=== PATIENT | male | born 1990 | race African-American/Black ===

== ENCOUNTER 2016-04-12 21:47 | Emergency (ER) | payer SELFPAY ==
[~2016-04-12] VITALS: Ht 177.8 cm; Wt 72.6 kg
[2016-04-12 22:10] VITALS: BP 132/88
[2016-04-12 22:58] LABS: BASO # 0.1 x10^3/uL (0.0-0.2); BASO % 1 % (0-3); EOS % 0 % (0-3); HEMATOCRIT 47.5 % (39.0-53.0); HEMOGLOBIN 15.6 g/dL (13.0-17.5); LYMPH # 0.4 x10^3/uL (1.0-4.8); LYMPH % 3 % (24-48); MEAN CORPUSCULAR HEMOGLOBIN 26 pg (25-35); MEAN CORPUSCULAR HGB CONC 33 g/dL (31-37); MEAN CORPUSCULAR VOLUME 78 fL (79-100); MONO % 4 % (0-9); NEUT % 93 % (31-73); PLATELET COUNT 260 x10^3/uL (140-400); RED BLOOD COUNT 6.09 x10^6/uL (4.30-5.70); RED CELL DISTRIBUTION WIDTH 14.4 % (11.5-14.5); WHITE BLOOD COUNT 14.1 x10^3/uL (4.0-11.0)
[2016-04-12] MEDS ORDERED: FAMOTIDINE 20 MG/2 ML VIAL IVP ONE (23:00)
[2016-04-12] MEDS ORDERED: ONDANSETRON PF 4 MG/2 ML VIAL. IV ONE (23:00)
[2016-04-12] MEDS ORDERED: FENTANYL PF 100 MCG/2 ML VIAL. IV PRN (23:00)
[2016-04-12] MEDS ORDERED: IV NORMAL SALINE 1000ML BAG 1,000 ML IV SCH (23:00)
[2016-04-12 23:25] LABS: CALCIUM 9.5 mg/dL (8.5-10.1); GFR 109.3
[2016-04-12 23:30] LABS: ALBUMIN 4.4 g/dL (3.4-5.0); DIRECT BILIRUBIN 0.1 mg/dL (0.0-0.2); TOTAL BILIRUBIN 0.6 mg/dL (0.2-1.0)
[2016-04-13] MEDS ORDERED: ONDA4TAB10 SL (00:02)
--- NOTE | 2016-04-13 00:02 | PHYS DOC ---
Past Medical History Past Medical History: No Pertinent History Past Surgical History: No Surgical History Alcohol Use: None Drug Use: None Adult General Chief Complaint Chief Complaint: NAUSEA/VOMITING/DIARRHA HPI HPI Patient is a 25 year old male who presents with lower abdominal pain, nausea and vomiting, and diarrhea starting this morning. States pain is nonradiating and nonmigrating. He has crampy, mild lower abdominal pain. He has had multiple episodes of nonbloody nonbilious emesis. He also notes mild headache, mid back pain and myalgia and chills. States he only has difficulty breathing when he is actively gagging, and has no active dyspnea. He denies dysuria, hematuria, constipation, fever, cough, chest pain, dyspnea, rash, sick contacts, recent travel or antibiotics. Review of Systems Review of Systems Constitutional: Denies measured fever [] Eyes: Denies change in visual acuity, redness, or eye pain [] HENT: Denies nasal congestion or sore throat [] Respiratory: Denies cough or shortness of breath [] Cardiovascular: No additional information not addressed in HPI [] GI: Denies bloody stools or bloody emesis [] : Denies dysuria or hematuria [] Musculoskeletal: Denies joint pain [] Integument: Denies rash or skin lesions [] Neurologic: Denies headache, focal weakness or sensory changes [] Endocrine: Denies polyuria or polydipsia [] Current Medications Current Medications Current Medications Medications (Trade) Dose Ordered Sig/Bret Start Time Stop Time Status Last Admin Dose Admin Famotidine (Pepcid) 20 mg 1X ONCE 04/12/16 23:00 04/12/16 23:01 DC 04/12/16 23:16 20 MG Fentanyl Citrate 50 mcg 50 mcg PRN Q15MIN PRN 04/12/16 23:00 04/13/16 22:59 04/12/16 23:16 50 MCG Ondansetron HCl (Zofran) 4 mg 1X ONCE 04/12/16 23:00 04/12/16 23:01 DC 04/12/16 23:16 4 MG Sodium Chloride (Iv Sodium Chloride 0.9% 1000ml Bag) 1,000 ml @ 1,000 mls/hr Q1H 04/12/16 23:00 04/12/16 23:59 DC 04/12/16 23:15 1,000 MLS/HR Allergies Allergies Allergies Coded Allergies Type Severity Reaction Last Updated Verified No Known Drug Allergies 04/12/16 No Physical Exam Physical Exam Constitutional: Well developed, well nourished, no acute distress, non-toxic appearance. [] HENT: Normocephalic, atraumatic, bilateral external ears normal, oropharynx moist, nose normal. [] Eyes: PERRLA, EOMI. [] Neck: Normal range of motion, supple. [] Cardiovascular:Heart rate regular rhythm [] Lungs & Thorax: Bilateral breath sounds clear to auscultation [] Abdomen: Bowel sounds normal, soft, minimal right lower quadrant and suprapubic tenderness, no guarding or rebound, negative Rovsing's, negative psoas/obturator /heeltap. [] Skin: Warm, dry, no erythema, no rash. [] Back: No tenderness, no CVA tenderness. [] Extremities: No tenderness, ROM intact, no edema. [] Neurologic: Alert and oriented X 3, normal motor function, normal sensory function, no focal deficits noted. [] Psychologic: Affect normal, judgement normal, mood normal. [] Current Patient Data Vital Signs Vital Signs Date Time Temp Pulse Resp B/P Pulse Ox O2 Delivery O2 Flow Rate FiO2 04/12/16 23:53 Room Air 04/12/16 22:10 98.8 97 18 132/88 99 98.8 Lab Values Laboratory Tests Test 04/12/16 22:35 White Blood Count 14.1x10^3/uL (4.0-11.0) H Red Blood Count 6.09x10^6/uL (4.30-5.70) H Hemoglobin 15.6g/dL (13.0-17.5) Hematocrit 47.5% (39.0-53.0) Mean Corpuscular Volume 78fL (79-100) L Mean Corpuscular Hemoglobin 26pg (25-35) Mean Corpuscular Hemoglobin Concent 33g/dL (31-37) Red Cell Distribution Width 14.4% (11.5-14.5) Platelet Count 260x10^3/uL (140-400) Neutrophils (%) (Auto) 93% (31-73) H Lymphocytes (%) (Auto) 3% (24-48) L Monocytes (%) (Auto) 4% (0-9) Eosinophils (%) (Auto) 0% (0-3) Basophils (%) (Auto) 1% (0-3) Neutrophils # (Auto) 13.1x10^3uL (1.8-7.7) H Lymphocytes # (Auto) 0.4x10^3/uL (1.0-4.8) L Monocytes # (Auto) 0.5x10^3/uL (0.0-1.1) Eosinophils # (Auto) 0.0x10^3/uL (0.0-0.7) Basophils # (Auto) 0.1x10^3/uL (0.0-0.2) Platelet Estimate Pending Sodium Level 143mmol/L (136-145) Potassium Level 4.0mmol/L (3.5-5.1) Chloride Level 103mmol/L (98-107) Carbon Dioxide Level 28mmol/L (21-32) Anion Gap 12 (6-14) Blood Urea Nitrogen 14mg/dL (8-26) Creatinine 1.0mg/dL (0.7-1.3) Estimated GFR (Cockcroft-Gault) 109.3 Glucose Level 125mg/dL (70-99) H Calcium Level 9.5mg/dL (8.5-10.1) Total Bilirubin 0.6mg/dL (0.2-1.0) Direct Bilirubin 0.1mg/dL (0.0-0.2) Aspartate Amino Transferase (AST) 21U/L (15-37) Alanine Aminotransferase (ALT) 50U/L (16-63) Alkaline Phosphatase 64U/L (46-116) Total Protein 8.0g/dL (6.4-8.2) Albumin 4.4g/dL (3.4-5.0) Lipase 84U/L (73-393) Laboratory Tests 04/12/16 22:35 Laboratory Tests 04/12/16 22:35 Course & Med Decision Making Course & Med Decision Making Pertinent Labs and Imaging studies reviewed. (See chart for details) He has leukocytosis, but labs are otherwise unremarkable. He is feeling well and tolerating po. He would like to go home. Abdomen exam is soft and nontender. Return precautions given. He and family understand and agree with plan. Dragon Disclaimer Dragon Disclaimer This electronic medical record was generated, in whole or in part, using a voice recognition dictation system. Departure Departure Impression: Primary Impression: Nausea vomiting and diarrhea Additional Impression: Lower abdominal pain Disposition: 01 HOME, SELF-CARE Condition: STABLE Referrals: NO PCP (PCP) Patient Instructions: Abdominal Pain, Possible Early Appendicitis Additional Instructions: Take Zofran as needed for nausea. Drink liquids to stay hydrated. Follow-up with your primary care doctor within one week. Return for any concerns. Scripts Ondansetron (Zofran Odt)4 Mg Tab.rapdis1 Tab SL Q8HRS #10 TAB Prov:Janey COWART MD 04/13/16 Problem Qualifiers Janey COWART MD Apr 13, 2016 00:02
[2016-04-13 04:59] LABS: PLT ESTIMATE ADEQUATE (ADEQUATE)
== END 2016-04-13 00:20 | disposition home or self-care (01) ==
LOC: ER 21:47
DX: R10.31 Right lower quadrant pain (principal); R11.2 Nausea with vomiting, unspecified; R19.7 Diarrhea, unspecified; R51 Headache; M54.6 Pain in thoracic spine; M79.1 Myalgia
CPT/HCPCS: 36415; 80048; 80076; 83690; 85007; 85027; 96361; 96374; 96375; 99284; J2405; J3010; J7030; S0028

== ENCOUNTER 2017-03-31 00:22 | Emergency (ER) | payer OTHER ==
[~2017-03-31] VITALS: Ht 177.8 cm; Wt 72.6 kg
[~2017-03-31 00:22] MED LIST: ONDA4TAB10 SL
[2017-03-31 00:55] LABS: BASO % 0 % (0-3); EOS % 0 % (0-3); HEMATOCRIT 45.4 % (39.0-53.0); HEMOGLOBIN 14.8 g/dL (13.0-17.5); LYMPH # 0.2 x10^3/uL (1.0-4.8); LYMPH % 2 % (24-48); MEAN CORPUSCULAR HEMOGLOBIN 25 pg (25-35); MEAN CORPUSCULAR HGB CONC 33 g/dL (31-37); MEAN CORPUSCULAR VOLUME 77 fL (79-100); MONO % 3 % (0-9); NEUT % 95 % (31-73); PLATELET COUNT 258 x10^3/uL (140-400); RED BLOOD COUNT 5.86 x10^6/uL (4.30-5.70); RED CELL DISTRIBUTION WIDTH 14.6 % (11.5-14.5); WHITE BLOOD COUNT 11.9 x10^3/uL (4.0-11.0)
[2017-03-31] MEDS ORDERED: FAMOTIDINE 20 MG/2 ML VIAL IVP ONE (01:00)
[2017-03-31] MEDS ORDERED: ONDANSETRON PF 4 MG/2 ML VIAL. IV ONE (01:00)
[2017-03-31] MEDS ORDERED: LIDO:MAALOX:DONNATAL 1:1:1 15 ML SINGLE DOSE SWSW ONE (01:00)
[2017-03-31 01:05] LABS: CALCIUM 8.6 mg/dL (8.5-10.1); GFR 108.5; POTASSIUM 3.6 mmol/L (3.5-5.1)
[2017-03-31 01:11] LABS: ALBUMIN 3.9 g/dL (3.4-5.0); ALBUMIN/GLOBULIN RATIO 1.2 (1.0-1.7); TOTAL BILIRUBIN 0.6 mg/dL (0.2-1.0); TOTAL PROTEIN 7.2 g/dL (6.4-8.2)
[2017-03-31] MEDS ORDERED: IV NORMAL SALINE 1000ML BAG 1,000 ML IV ONE (01:15)
[2017-03-31] MEDS ORDERED: KETOROLAC 30 MG/ML INJ. IV ONE (01:30)
--- NOTE | 2017-03-31 01:32 | PHYS DOC ---
Past Medical History Past Medical History: No Pertinent History Past Surgical History: No Surgical History Alcohol Use: None Drug Use: Marijuana Adult General Chief Complaint Chief Complaint: NAUSEA/VOMITING/DIARRHA HPI HPI Patient is a 26 year old male who presents with complaint of nausea, vomiting, and abdominal pain. Patient states his symptoms started earlier today and have been progressively worsening throughout the evening. Patient states that he has had history of similar symptoms. Patient denies any fevers. Patient states that he has had too numerous episodes of vomiting to be able to count. Patient states that he feels weak and dehydrated at this time. Patient has not taken any medication for his symptoms. Patient states he is having pain in his upper abdomen that radiates towards his back. Patient rates his pain currently as 8 out of 10. Denies any sick contacts or recent travel. Review of Systems Review of Systems Constitutional: Denies fever or chills [] Eyes: Denies change in visual acuity, redness, or eye pain [] HENT: Denies nasal congestion or sore throat [] Respiratory: Denies cough or shortness of breath [] Cardiovascular: Denies chest pain or edema[] GI: Abdominal pain, nausea, vomiting, denies bloody stools or diarrhea[] : Denies dysuria or hematuria [] Musculoskeletal: Back pain[] Integument: Denies rash or skin lesions [] Neurologic: Denies headache, focal weakness or sensory changes [] All other systems were reviewed and found to be within normal limits, except as documented in this note. Current Medications Current Medications Current Medications Medications (Trade) Dose Ordered Sig/Bret Start Time Stop Time Status Last Admin Dose Admin Famotidine (Pepcid Vial) 20 mg 1X ONCE 03/31/17 01:00 03/31/17 01:01 DC 03/31/17 00:59 20 MG Info (Do NOT chart on this entry -- for MONITORING) 1 each PRN DAILY PRN 03/31/17 02:30 04/02/17 02:29 Iohexol (Omnipaque 300 Mg/ml) 75 ml 1X ONCE 03/31/17 02:15 03/31/17 02:16 DC 03/31/17 02:36 75 ML Ketorolac Tromethamine (Toradol) 30 mg 1X ONCE 03/31/17 01:30 03/31/17 01:31 DC 03/31/17 01:29 30 MG Levofloxacin (Levaquin) 500 mg 1X ONCE 03/31/17 04:00 03/31/17 04:01 UNV Multi-Ingredient Mouthwash/Gargle (Gi Cocktail Single Dose) 15 ml 1X ONCE 03/31/17 01:00 03/31/17 01:01 DC 03/31/17 01:27 15 ML Ondansetron HCl (Zofran) 4 mg 1X ONCE 03/31/17 01:00 03/31/17 01:01 DC 03/31/17 00:59 4 MG Sodium Chloride 1,000 ml @ 1,000 mls/hr 1X ONCE 03/31/17 01:15 03/31/17 02:14 DC 03/31/17 01:06 1,000 MLS/HR Allergies Allergies Allergies Coded Allergies Type Severity Reaction Last Updated Verified No Known Drug Allergies 04/12/16 No Physical Exam Physical Exam Constitutional: Alert, afebrile, appears in [id number] discomfort. [] HENT: Normocephalic, atraumatic, bilateral external ears normal, oropharynx moist, no oral exudates, nose normal. [] Eyes: PERRLA, EOMI, conjunctiva normal, no discharge. [] Neck: Normal range of motion, no tenderness, supple, no stridor. [] Cardiovascular:Heart rate regular rhythm, no murmur [] Lungs & Thorax: Bilateral breath sounds clear to auscultation [] Abdomen: Bowel sounds normal, soft, periumbilical tenderness to palpation with no guarding or rebound tenderness, no masses, no pulsatile masses. [] Skin: Warm, dry, no erythema, no rash. [] Back: No tenderness, no CVA tenderness. [] Extremities: No tenderness, no cyanosis, no clubbing, ROM intact, no edema. [] Neurologic: Alert and oriented X 3, normal motor function, normal sensory function, no focal deficits noted. [] Current Patient Data Vital Signs Vital Signs Date Time Temp Pulse Resp B/P (MAP) Pulse Ox O2 Delivery O2 Flow Rate FiO2 03/31/17 02:02 83 16 118/67 (84) 98 Room Air 03/31/17 00:29 98.2 98.2 Lab Values Laboratory Tests Test 03/31/17 00:40 03/31/17 01:25 White Blood Count 11.9 x10^3/uL (4.0-11.0) H Red Blood Count 5.86 x10^6/uL (4.30-5.70) H Hemoglobin 14.8 g/dL (13.0-17.5) Hematocrit 45.4 % (39.0-53.0) Mean Corpuscular Volume 77 fL (79-100) L Mean Corpuscular Hemoglobin 25 pg (25-35) Mean Corpuscular Hemoglobin Concent 33 g/dL (31-37) Red Cell Distribution Width 14.6 % (11.5-14.5) H Platelet Count 258 x10^3/uL (140-400) Neutrophils (%) (Auto) 95 % (31-73) H Lymphocytes (%) (Auto) 2 % (24-48) L Monocytes (%) (Auto) 3 % (0-9) Eosinophils (%) (Auto) 0 % (0-3) Basophils (%) (Auto) 0 % (0-3) Neutrophils # (Auto) 11.3 x10^3uL (1.8-7.7) H Lymphocytes # (Auto) 0.2 x10^3/uL (1.0-4.8) L Monocytes # (Auto) 0.3 x10^3/uL (0.0-1.1) Eosinophils # (Auto) 0.0 x10^3/uL (0.0-0.7) Basophils # (Auto) 0.0 x10^3/uL (0.0-0.2) Segmented Neutrophils % 87 % (35-66) H Band Neutrophils % 9 % (0-9) Lymphocytes % 2 % (24-48) L Monocytes % 2 % (0-10) Platelet Estimate Adequate (ADEQUATE) Sodium Level 145 mmol/L (136-145) Potassium Level 3.6 mmol/L (3.5-5.1) Chloride Level 107 mmol/L (98-107) Carbon Dioxide Level 24 mmol/L (21-32) Anion Gap 14 (6-14) Blood Urea Nitrogen 12 mg/dL (8-26) Creatinine 1.0 mg/dL (0.7-1.3) Estimated GFR (Cockcroft-Gault) 108.5 BUN/Creatinine Ratio 12 (6-20) Glucose Level 126 mg/dL (70-99) H Calcium Level 8.6 mg/dL (8.5-10.1) Total Bilirubin 0.6 mg/dL (0.2-1.0) Aspartate Amino Transferase (AST) 74 U/L (15-37) H Alanine Aminotransferase (ALT) 38 U/L (16-63) Alkaline Phosphatase 54 U/L (46-116) Total Protein 7.2 g/dL (6.4-8.2) Albumin 3.9 g/dL (3.4-5.0) Albumin/Globulin Ratio 1.2 (1.0-1.7) Lipase 71 U/L (73-393) L Urine Collection Type Unknown Urine Color Yellow Urine Clarity Clear Urine pH 6.0 Urine Specific [place] 1.025 Urine Protein Negative mg/dL (NEG-TRACE) Urine Glucose (UA) Negative mg/dL (NEG) Urine Ketones (Stick) 15 mg/dL (NEG) Urine Blood Negative (NEG) Urine Nitrite Negative (NEG) Urine Bilirubin Negative (NEG) Urine Urobilinogen Dipstick 1.0 mg/dL (0.2 mg/dL) Urine Leukocyte Esterase Negative (NEG) Urine RBC 0 /HPF (0-2) Urine WBC Occ /HPF (0-4) Urine Squamous Epithelial Cells Few /LPF Urine Bacteria 0 /HPF (0-FEW) Urine Mucus Mod /LPF Laboratory Tests 03/31/17 00:40 Laboratory Tests 03/31/17 00:40 EKG EKG Not performed[] Radiology/Procedures Radiology/Procedures [facility] [address] [place], [place] [id number] IMAGING REPORT Signed PATIENT: JEAN CLAUDE KATHLEEN ACCOUNT: [id number] : 1990 LOCATION: ER AGE: 26 SEX: M EXAM STATUS: REG ER ORD. PHYSICIAN: RAMON TSANG MD REASON: abdominal pain, vomiting PROCEDURE: CT ABD PELV W/ IV CONTRST ONLY EXAM: CT ABDOMEN/PELVIS WITH CONTRAST. HISTORY: Abdominal pain, vomiting. TECHNIQUE: Computed tomography of the abdomen and pelvis was performed after the intravenous administration of 75 mL Omnipaque 300. COMPARISON: None. FINDINGS: There are limitations from motion artifact from vomiting. Images were repeated. Lung windows through the visualized portions of the bases reveal mild atelectasis. Bone windows reveal no suspicious lesions. There appears to be some wall thickening along the duodenum on the first series, but is not clearly apparent on the repeated images. The stomach is decompressed on the second series. There is no obstruction. The appendix is not inflamed. There are no pathologically enlarged lymph nodes. The pancreatic head is prominent without clear focal lesion or surrounding fluid or inflammatory change. The spleen, adrenal glands, liver and kidneys are unremarkable. The gallbladder is decompressed. IMPRESSION: 1. Questionable duodenal wall thickening. Correlate for duodenitis. No evidence of obstruction. 2. Prominence of the pancreatic head can be a normal appearance. Correlate to exclude pancreatitis. *One or more of the following individualized dose reduction techniques were utilized for this examination: 1. Automated exposure control. 2. Adjustment of the mA and/or kV according to patient size. 3. Use of iterative reconstruction technique. Electronically signed by: Nedra Nieves MD (03/31/2017 3:30 AM) [facility] DICTATED and SIGNED BY: KALEB NIEVES MD DATE: 03/31/17 0258 CC: RAMON TSANG MD; NO PCP ~ [] Course & Med Decision Making Course & Med Decision Making Pertinent Labs and Imaging studies reviewed. (See chart for details) Patient was given IV fluids, Toradol, and Zofran in the emergency Department patient also was given GI cocktail with improvement in symptoms. Patient's CT scan showed thickening of the duodenum suggesting possible duodenitis. Given the elevated white count the patient was started on oral antibiotics for treatment. The patient is tolerating oral intake without difficulty and feels much better at this time. Patient will continue on 5 day course of Levaquin for treatment. Advise follow-up with primary doctor in 2 days for reevaluation. Patient also referred to Dr. Vitale of gastroenterology follow-up in one to 2 weeks. Advised return emergency department for any worsening symptoms. Patient voiced understanding and in agreement with treatment plan. Dragon Disclaimer Dragon Disclaimer This electronic medical record was generated, in whole or in part, using a voice recognition dictation system. Departure Departure Impression: Primary Impression: Duodenitis Disposition: 01 HOME, SELF-CARE Condition: IMPROVED Referrals: NO PCP (PCP) Patient Instructions: Abdominal Pain Additional Instructions: Follow-up with your primary doctor in 2 days for reevaluation. Follow-up with Dr. Vitale of gastroenterology in one to 2 weeks. Return to the emergency department for any worsening symptoms. Scripts Famotidine (PEPCID) 20 Mg Tablet 20 MG PO BID, #30 TAB Prov: RAMON TSANG MD 03/31/17 Ondansetron (ZOFRAN ODT) 4 Mg Tab.rapdis 1 TAB SL Q8HRS Y for NAUSEA/VOMITING, #20 TAB Prov: RAMON TSANG MD 03/31/17 Hydrocodone/Apap 5-325 (NORCO 5-325 TABLET) 1 Each Tablet 1-2 TAB PO Q4-6HRS Y for PAIN, #20 TAB Prov: RAMON TSANG MD 03/31/17 Levofloxacin (LEVAQUIN) 500 Mg Tablet 1 TAB PO DAILY, #5 TAB Prov: RAMON TSANG MD 03/31/17 RAMON TSANG MD Mar 31, 2017 01:32
[2017-03-31 01:36] LABS: BILIRUBIN,URINE NEGATIVE (NEG); GLUCOSE,URINE NEGATIVE (NEG); NITRITE,URINE NEGATIVE (NEG); PROTEIN,URINE NEGATIVE (NEG-TRACE)
[2017-03-31 01:55] LABS: BACTERIA,URINE 0 /HPF (0-FEW); RBC,URINE 0 /HPF (0-2); SQUAMOUS EPITHELIAL CELL,UR FEW /LPF; WBC,URINE OCC /HPF (0-4)
[2017-03-31 01:59] LABS: PLT ESTIMATE ADEQUATE (ADEQUATE)
[2017-03-31] MEDS ORDERED: IOHEXOL 300 MG/ML 100ML VIAL. IV ONE (02:15)
[2017-03-31] MEDS ORDERED: CONTRAST GIVEN MC PRN (02:30)
--- NOTE | 2017-03-31 03:33 | RAD ---
EXAM: CT ABDOMEN/PELVIS WITH CONTRAST. HISTORY: Abdominal pain, vomiting. TECHNIQUE: Computed tomography of the abdomen and pelvis was performed after the intravenous administration of 75 mL Omnipaque 300. COMPARISON: None. FINDINGS: There are limitations from motion artifact from vomiting. Images were repeated. Lung windows through the visualized portions of the bases reveal mild atelectasis. Bone windows reveal no suspicious lesions. There appears to be some wall thickening along the duodenum on the first series, but is not clearly apparent on the repeated images. The stomach is decompressed on the second series. There is no obstruction. The appendix is not inflamed. There are no pathologically enlarged lymph nodes. The pancreatic head is prominent without clear focal lesion or surrounding fluid or inflammatory change. The spleen, adrenal glands, liver and kidneys are unremarkable. The gallbladder is decompressed. IMPRESSION: 1. Questionable duodenal wall thickening. Correlate for duodenitis. No evidence of obstruction. 2. Prominence of the pancreatic head can be a normal appearance. Correlate to exclude pancreatitis. *One or more of the following individualized dose reduction techniques were utilized for this examination: 1. Automated exposure control. 2. Adjustment of the mA and/or kV according to patient size. 3. Use of iterative reconstruction technique. Electronically signed by: Nedra Nieves MD (03/31/2017 3:30 AM) [facility]
[2017-03-31] MEDS ORDERED: LEVO500T59 PO (04:06)
[2017-03-31] MEDS ORDERED: FAMO-63 PO (04:06)
[2017-03-31] MEDS ORDERED: ONDA4TAB10 SL (04:06)
[2017-03-31] MEDS ORDERED: HYDR-971 PO (04:06)
[2017-03-31 04:30] VITALS: BP 103/58
== END 2017-03-31 05:00 | disposition home or self-care (01) ==
LOC: ER 00:22
DX: K29.80 Duodenitis without bleeding (principal); F12.10 Cannabis abuse, uncomplicated
CPT/HCPCS: 36415; 74177; 80053; 81001; 83690; 85025; 96361; 96374; 96375; 99285; J1885; J2405; J7030; Q9967; S0028; 85007

== ENCOUNTER 2017-04-17 08:24 | Emergency (ER) | payer OTHER ==
[2017-04-17] MEDS ORDERED: PROMETHAZINE 12.5 MG in IV DEXTROSE 5% 50 ML IV (09:00)
[2017-04-17] MEDS: IV NORMAL SALINE 1000ML BAG 1,000 ML IV ×2 (09:11→11:13)
[2017-04-17] MEDS: diphenhydrAMINE 50 MG/ML VIAL IVP (09:12)
[2017-04-17] MEDS: PROMETHAZINE 12.5 MG in IV NORMAL SALINE 50ML 50 ML IV (09:13)
[2017-04-17 09:22] LABS: ADD MAN DIFF? NO
[2017-04-17 09:25] LABS: BASO # 0.1 x10^3/uL (0.0-0.2); BASO % 1 % (0-3); EOS % 0 % (0-3); HEMATOCRIT 42.9 % (39.0-53.0); HEMOGLOBIN 14.1 g/dL (13.0-17.5); LYMPH # 0.7 x10^3/uL (1.0-4.8); LYMPH % 8 % (24-48); MEAN CORPUSCULAR HEMOGLOBIN 26 pg (25-35); MEAN CORPUSCULAR HGB CONC 33 g/dL (31-37); MEAN CORPUSCULAR VOLUME 78 fL (79-100); MONO # 0.7 x10^3/uL (0.0-1.1); MONO % 8 % (0-9); NEUT # 7.2 x10^3uL (1.8-7.7); NEUT % 83 % (31-73); PLATELET COUNT 255 x10^3/uL (140-400); RED BLOOD COUNT 5.52 x10^6/uL (4.30-5.70); RED CELL DISTRIBUTION WIDTH 14.7 % (11.5-14.5); WHITE BLOOD COUNT 8.7 x10^3/uL (4.0-11.0)
[2017-04-17 09:34] LABS: ANION GAP 9 (6-14); BLOOD UREA NITROGEN 9 mg/dL (8-26); CALCIUM 8.6 mg/dL (8.5-10.1); CARBON DIOXIDE 27 mmol/L (21-32); CHLORIDE 102 mmol/L (98-107); CREATININE 1.1 mg/dL (0.7-1.3); GFR 97.2; GLUCOSE 116 mg/dL (70-99); POTASSIUM 4.4 mmol/L (3.5-5.1); SODIUM 138 mmol/L (136-145)
[2017-04-17 09:39] LABS: BILIRUBIN,URINE NEGATIVE (NEG); CLARITY,URINE CLEAR; COLOR,URINE YELLOW; GLUCOSE,URINE NEGATIVE (NEG); NITRITE,URINE NEGATIVE (NEG); PROTEIN,URINE NEGATIVE (NEG-TRACE); UROBILINOGEN,URINE 0.2 mg/dL (0.2 mg/dL)
[2017-04-17 09:43] LABS: ALBUMIN 3.9 g/dL (3.4-5.0); ALK PHOS 69 U/L (46-116); ALT (SGPT) 82 U/L (16-63); AST (SGOT) 99 U/L (15-37); DIRECT BILIRUBIN 0.1 mg/dL (0.0-0.2); LIPASE 119 U/L (73-393); TOTAL BILIRUBIN 0.3 mg/dL (0.2-1.0); TOTAL PROTEIN 6.9 g/dL (6.4-8.2)
[2017-04-17 09:48] LABS: BARBITURATES NEG (NEG); BENZODIAZEPINES NEG (NEG); CANNABINOIDS POS (NEG); COCAINE NEG (NEG); METHADONE NEG (NEG); OPIATES NEG (NEG); PHENCYCLIDINE NEG (NEG)
[2017-04-17 09:49] LABS: CKMB MASS 1.5 ng/mL (0.0-3.6)
[2017-04-17 09:51] LABS: SQUAMOUS EPITHELIAL CELL,UR FEW /LPF
[2017-04-17 09:52] LABS: BACTERIA,URINE 0 /HPF (0-FEW); RBC,URINE RARE /HPF (0-2); WBC,URINE 0 /HPF (0-4)
[2017-04-17 09:57] LABS: AMPHETAMINE/METHAMPHETAMINE NEG (NEG); CKMB INDEX 0.1 % (0-4); CREATINE KINASE 2232 U/L (39-308); ETHANOL, URINE NEG (NEG)
[2017-04-17] MEDS: KETOROLAC 30 MG/ML INJ. IV (11:13)
[2017-04-17 13:04] LABS: CKMB MASS 1.2 ng/mL (0.0-3.6)
[2017-04-17 13:06] LABS: CKMB INDEX 0.1 % (0-4); CREATINE KINASE 1734 U/L (39-308)
== END 2017-04-17 13:29 | disposition home or self-care (01) ==
LOC: ER 08:24
DX: R51 Headache (principal); R11.0 Nausea; K21.9 Gastro-esophageal reflux disease without esophagitis; F12.10 Cannabis abuse, uncomplicated
CPT/HCPCS: 36415; 70450; 80048; 80076; 80307; 81001; 82553; 83690; 85025; 96361; 96365; 96375; 99285-25; J1200; J1885; J2550; J7030